=== PATIENT | female | born 1995 | race Caucasian/White ===

== ENCOUNTER 2023-01-09 16:00 | Outpatient (RCR) | payer OTHER, SELFPAY | END 2023-05-09 23:59 | disposition home or self-care (01) | PROVIDERS: Visit Provider Dentist | DX: M26.623 Arthralgia of bilateral temporomandibular joint (principal); M26.69 Other specified disorders of temporomandibular joint; M26.639 Articular disc disorder of temporomandibular joint, unspecified side; M54.2 Cervicalgia; Z51.89 Encounter for other specified aftercare | CPT/HCPCS: 97140; 97161; 97535 ==